=== PATIENT | male | born 1960 | race Caucasian/White ===

== ENCOUNTER 2019-11-16 03:03 | Inpatient (IN) | payer BC ==
[~2019-11-16] VITALS: Ht 185.4 cm; Wt 112.9 kg
[2019-11-16 03:03] VITALS: BP_SYST 186
--- NOTE | 2019-11-16 03:22 | NUR ---
Patient to ER bed 7 to gown for evaluation. Side rails up.
[2019-11-16] MEDS ORDERED: ASPIRIN 81 MG TAB.CHEW PO ONE (03:30)
--- NOTE | 2019-11-16 03:37 | NUR ---
Dr. Cardona bedside for pt eval
--- NOTE | 2019-11-16 03:40 | NUR ---
Pt BIB family to ED C/O pain to his chest and left back pain since 1700 hrs. No other complaints at this time. VSS no s/s of acute distress Resting on gurney rails up
--- NOTE | 2019-11-16 03:42 | NUR ---
Portable X Ray bedside, well tolerated
[2019-11-16 04:32] LABS: BASOPHILS # (AUTO) 0.1 K/uL (0.0-0.2); BASOPHILS % (AUTO) 1.4 % (0.0-2.0); EOSINOPHILS % (AUTO) 0.8 % (0.0-4.0); HEMATOCRIT 43.8 % (36-54); HEMOGLOBIN 15.2 g/dL (14.0-18.0); LYMPHOCYTES # (AUTO) 0.8 K/uL (1.0-5.5); LYMPHOCYTES % (AUTO) 13.1 % (20.5-51.5); MEAN CORPUSCULAR HEMOGLOBIN 34 pg (27-31); MEAN CORPUSCULAR HGB CONC 35 % (32-36); MEAN CORPUSCULAR VOLUME 98 fL (79.0-98.0); MONOCYTES # (AUTO) 0.5 K/uL (0.0-1.0); MONOCYTES % (AUTO) 8.8 % (1.7-9.3); NEUTROPHILS # (AUTO) 4.7 K/uL (1.8-7.7); NEUTROPHILS % (AUTO) 75.9 % (40.0-70.0); PLATELET COUNT (AUTO) 245 K/uL (130-430); RED BLOOD CELL COUNT(AUTO) 4.49 MIL/uL (4.2-6.2); RED CELL DISTRIBUTION WIDTH 13.5 % (9.0-15.0); WHITE BLOOD COUNT (AUTO) 6.1 K/uL (4.8-10.8)
[2019-11-16 04:39] LABS: CALCIUM 9.1 mg/dL (8.4-11.0); CREATININE 0.85 mg/dL (0.55-1.30)
[2019-11-16 04:44] LABS: ALBUMIN 3.7 g/dL (3.4-4.8); TOTAL BILIRUBIN 1.8 mg/dL (0.0-1.0)
[2019-11-16 04:48] LABS: PROTHROMBIN TIME 10.3 SECS (9.5-12.5)
[2019-11-16 04:53] LABS: POTASSIUM 2.9 mmol/L (3.5-5.1)
[2019-11-16] MEDS ORDERED: POTASSIUM CHLORIDE 10 MEQ TAB.PRT.SR PO ONE (05:15)
--- NOTE | 2019-11-16 05:15 | NUR ---
Dr. Cardona bedside for pt update
[2019-11-16 05:23] LABS: BILIRUBIN,URINE NEGATIVE (NEGATIVE); BLOOD, URINE 1+ (NEGATIVE); CLARITY/URINE CLEAR (CLEAR); COLOR,URINE YELLOW (YELLOW); GLUCOSE,URINE NEGATIVE (NEGATIVE); KETONES,URINE NEGATIVE (NEGATIVE); LEUKOCYTE ESTERASE ,URINE NEGATIVE (NEGATIVE); NITRITE, URINE NEGATIVE (NEGATIVE); PH,URINE 7.5 (5.0-8.0); PROTEIN URINE NEGATIVE (NEGATIVE)
[2019-11-16 05:29] LABS: BACTERIA,URINE FEW /HPF (None Seen); WBC,URINE 0-3 /HPF (0-3)
[2019-11-16] MEDS ORDERED: IOHEXOL 350 mgI/mL, 150 ML INFUS..BTL IV ONE (05:55)
--- NOTE | 2019-11-16 06:18 | NUR ---
CTA study with contrast well tolerated
--- NOTE | 2019-11-16 06:42 | NUR ---
Dr. Cardona bedside for pt update
[2019-11-16] MEDS ORDERED: KETOROLAC TROMETHAMINE 30 MG VIAL IVP ONE (07:00)
[2019-11-16] MEDS ORDERED: LORazepam 2 MG/ML VIAL IVP ONE (07:00)
--- NOTE | 2019-11-16 07:01 | NUR ---
IV Meds well tolerated
--- NOTE | 2019-11-16 07:25 | NUR ---
Patient sitting up in martha, [place]&Ox4, at BS
--- NOTE | 2019-11-16 08:00 | NUR ---
Patient Breakfast tray placed at bedside
[2019-11-16] MEDS ORDERED: ASA81 PO (08:25)
[2019-11-16] MEDS ORDERED: IBUP800T54 PO (08:25)
[2019-11-16] MEDS ORDERED: FENO160 PO (08:25)
[2019-11-16] MEDS ORDERED: FURO-150 PO (08:25)
[2019-11-16] MEDS ORDERED: DULO60CA41 PO (08:25)
--- NOTE | 2019-11-16 08:25 | NUR ---
Medication reconciliation completed with information provided by patient's . Any prior medication reconciliation on file was reviewed and corrected.
[2019-11-16] MEDS: FUROSEMIDE 20 MG TABLET PO SCH (09:00)
[2019-11-16] MEDS: DULoxetine HCL 30 MG CAPSULE.DR (CYMBALTA) PO SCH (09:00)
[2019-11-16] MEDS: ASPIRIN 81 MG TAB.CHEW PO SCH (09:00)
[2019-11-16] MEDS: FENOFIBRATE 160 MG TABLET PO SCH (09:00)
[2019-11-16] MEDS: MORPHINE 2 MG/ML INJ. SYRINGE IVP PRN ×3 (10:09→21:41)
--- NOTE | 2019-11-16 10:55 | NUR ---
Son of patient at , requested update from , made Dr. Pham aware.
--- NOTE | 2019-11-16 11:00 | NUR ---
ER Dr. Pham at bedside discussing treatment patient per patient request.
[2019-11-16] MEDS ORDERED: PIPERACILLIN/TAZO 3.375/DEX-IS 50 ML IV SCH ×2 (11:15→18:00)
[2019-11-16] MEDS ORDERED: fentaNYL CITRATE/PF 100 MCG/2 ML AMP IVP ONE (11:15)
[2019-11-16] MEDS ORDERED: ONDANSETRON HCL 4 MG/2 ML VIAL IVP ONE (11:30)
--- NOTE | 2019-11-16 12:30 | NUR ---
Patient given hospital lunch tray.
[2019-11-16] MEDS ORDERED: PIPERACILLIN/TAZOBACTAM 3.375 GM/VIAL (ZOSYN) IV ONE (12:36)
[2019-11-16] MEDS ORDERED: PIPERACILLIN/TAZO 3.375/DEX-IS 50 ML IV ONE (14:45)
--- NOTE | 2019-11-16 14:45 | NUR ---
Patient will be admitted to care of Dr. Rosas. Admitted to Tele unit. Will go to room 119 . Belongings list completed. Complete and up to date summary report printed. SBAR report to be given at bedside with opportunity for questions. Transfer to tele via ACLS protocol. Licensed nurse present. IV present no signs or symptoms of infiltration.
--- NOTE | 2019-11-16 15:01 | NUR ---
ADMISSION NOTE Received patient from ER via martha, received report from TRAVON MOSLEY. Patient admitted with diagnosis of CHEST PAIN. Patient oriented to hospital routine, call light, toileting and safety-patient verbalized understanding.
--- NOTE | 2019-11-16 15:17 | NUR ---
Paged Dr. Rosas for high blood pressure
[2019-11-16 15:19] VITALS: BP_SYST 190
[2019-11-16] MEDS: LORazepam 2 MG/ML VIAL IVP PRN ×2 (15:35→22:41)
--- NOTE | 2019-11-16 16:04 | NUR ---
Cardiac consult called: for Dr. Sanders, regarding chest pain, ordered by Dr. Rosas
[2019-11-16 16:05] VITALS: BP_SYST 175
[2019-11-16 16:43] VITALS: BP_SYST 163
[2019-11-16] MEDS: cloNIDine HCL 0.1 MG TABLET PO PRN ×2 (16:45→22:42)
[2019-11-16] MEDS: PIPERACILLIN/TAZO 3.375/DEX-IS 50 ML IV SCH (17:08)
--- NOTE | 2019-11-16 18:05 | NUR ---
Infection Due IV antibiotic completed with out adverse reaction, denies any oral pain.
[2019-11-16] MEDS ORDERED: HEPARIN 25,000 UNITS/D5W 250ML 250 ML IV PRN (19:15)
[2019-11-16] MEDS ORDERED: HEPARIN SODIUM,PORCINE 5000 UNITS/ML VIAL IVP ONE ×2 (19:30→21:30)
[2019-11-16] MEDS ORDERED: HEPARIN SODIUM,PORCINE 3000 UNITS/0.6 ML BOLUS IVP PRN (19:30)
[2019-11-16] MEDS ORDERED: HEPARIN SODIUM,PORCINE 2000 UNITS/0.4 ML BOLUS IVP PRN (19:30)
[2019-11-16] MEDS: HEPARIN 25,000 UNITS in 250 ML PREMIX IV PRN (22:12)
[2019-11-17] MEDS: PIPERACILLIN/TAZO 3.375/DEX-IS 50 ML IV SCH ×5 (00:37→23:20)
[2019-11-17 04:00] VITALS: BP_SYST 153
[2019-11-17] MEDS: MORPHINE 2 MG/ML INJ. SYRINGE IVP PRN ×4 (04:18→22:51)
[2019-11-17] MEDS: HEPARIN 25,000 UNITS in 250 ML PREMIX IV PRN (06:23)
[2019-11-17] MEDS: LORazepam 2 MG/ML VIAL IVP PRN ×3 (06:29→20:38)
--- NOTE | 2019-11-17 06:40 | NUR ---
900 units of Heparin administered as ordwered , this shift. Heparin drip is initiated as ordered. Instructed pt on the side effects of Heparin. Teach pt to apply pressure to site of noticeable bleeding.
--- NOTE | 2019-11-17 08:00 | NUR ---
Initial notes- pt off for VQ scan.
[2019-11-17 09:00] VITALS: BP_SYST 140
--- NOTE | 2019-11-17 09:00 | NUR ---
Notes- pt came back from VQ scan. Denies any chest pain or shortness of breath. drowsy from ativan. safety precaution observed. enc to call for help as needed.
[2019-11-17] MEDS: FENOFIBRATE 160 MG TABLET PO SCH (09:18)
[2019-11-17] MEDS: ASPIRIN 81 MG TAB.CHEW PO SCH (09:18)
[2019-11-17] MEDS: FUROSEMIDE 20 MG TABLET PO SCH (09:18)
[2019-11-17] MEDS: DULoxetine HCL 30 MG CAPSULE.DR (CYMBALTA) PO SCH (09:18)
[2019-11-17 11:05] LABS: ANION GAP 7 (5-15); CALCIUM 8.8 mg/dL (8.4-11.0); CHLORIDE 98 mmol/L (98-107); GLUCOSE 109 mg/dL (70-99); POTASSIUM 3.3 mmol/L (3.5-5.1); SODIUM SERUM 139 mmol/L (136-145); UREA NITROGEN, BLOOD 16 mg/dL (8-21)
[2019-11-17 11:06] LABS: GFR AFRICAN AMERICAN 110 mL/min (>90)
--- NOTE | 2019-11-17 12:00 | NUR ---
MD ROUNDS Seen by Dr. Tommy MD ordered to stop the heparin.
[2019-11-17 12:24] VITALS: BP_SYST 149
--- NOTE | 2019-11-17 12:40 | NUR ---
pt feels anxious and wants ativan, family at bedside. ativan given as ordered.
--- NOTE | 2019-11-17 15:00 | NUR ---
Pt resting, denies any chest pain or shortness of breath. has some back pain. Calm at this time. Enc. to call for help as needed. refused bed alarm
--- NOTE | 2019-11-17 15:08 | NUR ---
Dietitian Recommendations * Recommend continuing [address] Please refer to Nutrition Assessment for details. Addendum: 11/17/19 at [address] Amended: Links added.
[2019-11-17 17:00] VITALS: BP_SYST 140
--- NOTE | 2019-11-17 17:00 | NUR ---
notes- In bed, asleep. at bedside.
--- NOTE | 2019-11-17 18:36 | NUR ---
closing notes- Eating dinner, pain is controlled at this time/ iv antibiotics infusing. all needs meet through out shift. will endorse
--- NOTE | 2019-11-17 19:45 | NUR ---
A/A/O X4.AMBULATORY.FAMILY @ THE BS.NOTED LEFT FACE SLIGHTLY SWOLLEN.DENIES ANY DISCOMFORT @ THIS TIME. INSTRUCTED TO USE CALL LIGHT NEEDED;WITHIN REACH.
[2019-11-17 20:00] VITALS: BP_SYST 153
--- NOTE | 2019-11-17 22:51 | NUR ---
MORPHINE IV ADM FOR BURNING,SHARP LOWER BACK PAIN SCALE 7/10.
--- NOTE | 2019-11-17 23:21 | NUR ---
PER PT PAIN STILL PERSIST BUT DECREASED TO SCALE 6/10.NO FACIAL GRIMACING NOTED.
[2019-11-18] VITALS: BP_SYST 158
--- NOTE | 2019-11-18 | NUR ---
AFEBRILE.BP 158/87.TELE SHOWED SR.
--- NOTE | 2019-11-18 02:00 | NUR ---
WATCHING TV.TELE SHOWED SR.
[2019-11-18] MEDS: LORazepam 2 MG/ML VIAL IVP PRN ×2 (02:37→10:44)
[2019-11-18] MEDS: MORPHINE 2 MG/ML INJ. SYRINGE IVP PRN ×2 (03:37→09:47)
[2019-11-18 04:00] VITALS: BP_SYST 142
--- NOTE | 2019-11-18 04:00 | NUR ---
AFEBRILE .TELE SHOWED SR.
[2019-11-18] MEDS: PIPERACILLIN/TAZO 3.375/DEX-IS 50 ML IV SCH ×2 (05:34→11:39)
--- NOTE | 2019-11-18 06:45 | NUR ---
ENDORSED RESTING COMFORTABLY IN NO ACUTE DISTRESS.SAFETY MAINTAINED.
[2019-11-18 07:55] VITALS: BP_SYST 159
--- NOTE | 2019-11-18 07:55 | NUR ---
Opening note patient resting in bed, a/ox4, states mild but tolerable pain at this time, assessment complete, IV line is patent and infusing well, educated the patient community education specialist light system and plan of care, he verbalized understanding, bed in lowest position, two side rails up, call light placed within reach, fall and aspiration precautions in place.
[2019-11-18] MEDS: DULoxetine HCL 30 MG CAPSULE.DR (CYMBALTA) PO SCH (09:36)
[2019-11-18] MEDS: FUROSEMIDE 20 MG TABLET PO SCH (09:36)
[2019-11-18] MEDS: ASPIRIN 81 MG TAB.CHEW PO SCH (09:36)
[2019-11-18] MEDS: FENOFIBRATE 160 MG TABLET PO SCH (09:36)
--- NOTE | 2019-11-18 09:50 | NUR ---
Medication patient resting in bed, awake, states pain has increased, educated on scheduled and PRN medication uses and potential side effects, he verbalized understanding and tolerated well, IV line is patent and infusing well, provided with ice water per his request, no other needs at this time, bed in lowest position, two side rails up, call light placed within reach, fall and aspiration precautions in place.
--- NOTE | 2019-11-18 10:46 | NUR ---
Anxiety patient resting in bed, c/o anxiety, educated on PRN medication uses and potential side effects, he verbalized understanding, IV line is patent and infusing well, no other needs at this time, continuing to monitor, bed in lowest position, two side rails up, call light within reach, fall and aspiration precautions in place.
--- NOTE | 2019-11-18 11:44 | NUR ---
RN rounds patient resting in bed, aware of new orders for discharge home today, patient states he has less anxiety right now, educate the patient on IV antibiotic uses and potential side effects, he verbalized understanding, IV line is patent and infusing well, will follow up with discharge paperwork, no other needs at this time, bed in lowest position, two side rails up, call light within reach, fall and aspiration precautions in place.
[2019-11-18 12:11] VITALS: BP_SYST 146
[2019-11-18 12:17] VITALS: BP_SYST 146
--- NOTE | 2019-11-18 13:00 | NUR ---
D/C Patient Patient given medication reconciliation form and D/C instructions. Exit Care provided. Patient verbalized understanding. MD discussed with patient the results and treatment provided. Ambulatory with steady gait for discharge to home. Patient in stable condition, ID band removed. IV catheter removed, intact and dressing applied, no active bleeding. Patient educated on pain management. All belongings sent with patient. Called the patient at [phone] to inform that he left his cellphone pilot control operator helper in the room, left a voicemail for the patient. This was his office number - the list phone number for his [phone] is no longer in service.
== END 2019-11-18 13:00 | disposition home or self-care (01) | DRG 313 ==
LOC: SED 03:03 → STU 07:18
PROVIDERS: ADMIT Internal Medicine Hospice and Palliative Medicine; ATTEND Internal Medicine Hospice and Palliative Medicine
DX: R07.89 Other chest pain (principal); E66.9 Obesity, unspecified; I10 Essential (primary) hypertension; K04.7 Periapical abscess without sinus; Z82.49 Family history of ischemic heart disease and other diseases of the circulatory system; Z68.32 Body mass index [BMI] 32.0-32.9, adult
CPT/HCPCS: 36415; 71045; 71275; 78579; 78580-TC; 80048; 80053; 81000-TC; 82550-TC; 83880; 84484; 85025; 85379; 85610-TC; 85730-TC; 87040-TC; 93005; 93306; 93970; 96365; 96375; 99285; A9539; A9540; G0378; J1644; J1885; J2060; J2270; J2405; J2543; J3010; J7050; Q9967